=== PATIENT | male | born 2000 | race Caucasian/White ===

== ENCOUNTER 2023-10-03 18:56 | Emergency (ER) | payer OTHER, SELFPAY ==
[2023-10-03 18:58] VITALS: BP 126/90; PULSE 98; RESP 20; TEMP 36.4; O2SAT 100
[2023-10-03 19:33] VITALS: BP 141/72; PULSE 93; RESP 15; TEMP 36.6; O2SAT 96
[2023-10-03] MEDS: SODIUM CHLORIDE 0.9% IV 1,000 ML 999 ML IV CONT (19:34)
--- NOTE | 2023-10-03 19:34 | ECG_ITS ---
Test Date: 2023-10-03 19:39:52 Measurements Intervals [place] Rate: 89 P: -6 OK: 144 QRS: 46 QRSD: 98 T: 9 QT: 315 QTc: 383 Interpretive Statements SINUS RHYTHM No previous ECG available for comparison Electronically Signed On 10-04-2023 11:10:03 CDT by Santo Lockwood M.D.
[2023-10-03 19:46] LABS: Basophils Percent Auto 0.1 % (0.2-1.2); Eosinophils Percent Auto 0.3 % (0-4.4); Hematocrit 40.9 % (42.0-52.0); Hemoglobin 14.2 g/dL (14.0-18.0); Immature Granulocyte Absolute 0.02 K/mm3 (0.00-0.031); Immature Granulocyte Percent A 0.3 % (0-0.5); Lymphocytes Absolute Auto 1.07 K/mm3 (0.9-3.2); Lymphocytes Percent Auto 15.7 % (18.3-44.2); Mean Corpuscular HGB Conc 34.7 g/dl (32-36); Mean Corpuscular Hemoglobin 30.1 pg (26-34); Mean Corpuscular Volume 86.8 fl (80-100); Monocytes Absolute Auto 0.5 K/mm3 (0.1-0.6); Monocytes Percent Auto 7.3 % (2.6-8.5); Neutrophils Absolute Auto 5.2 K/mm3 (1.3-6.7); Neutrophils Percent Auto 76.3 % (45.5-73.1); Platelet Count Result 203 k/mm3 (150-375); Red Blood Count 4.71 M/mm3 (4.6-6.20); Red Cell Distribution Width 12.7 % (11.5-14.5); White Blood Count 6.8 K/mm3 (4.5-10.0)
[2023-10-03 19:48] LABS: Appearance Urine Clear (Clear); Bilirubin Urine Negative (Negative); Blood Urine Negative (Negative); Color Urine Yellow (Yellow); Glucose Urine UA Negative (Negative); Ketones Urine Negative (Negative); Leukocyte Esterase Ur Negative LEU/UL (Negative); Nitrate Urine Negative (Negative); Protein Urine Negative (Negative); Specific Grav Ur 1.019 (1.001-1.035); pH Urine 7.5 (5.0-9.0)
[2023-10-03 19:55] LABS: Alanine Aminotransferase 32 U/L (6-50); Albumin Level 4.6 g/dL (3.5-5.1); Alkaline Phosphatase 106 U/L (38-126); Anion Gap 9 mmol/L (4-12); Aspartate Amino Transferase 34 U/L (17-59); Blood Urea Nitrogen 9 mg/dL (9-20); Carbon Dioxide 23 mmol/L (22-30); Chloride 104 mmol/L (98-107); Creatine Kinase 136 U/L (55-170); Estimated CRCL calculation 127 ml/min; Estimated Glomerular Filt Rate > 60; Glucose 98 mg/dL (65-110); Magnesium 1.7 mg/dL (1.6-2.3); Potassium 3.8 mmol/L (3.4-5.0); Sodium 136 mmol/L (137-145)
[2023-10-03 19:56] LABS: Add Urine Microscopic? NO
[2023-10-03] MEDS: MAGNESIUM SULF 2 GM/WATER 50ML 2 GM/50 ML BAG IVPB (20:31)
[2023-10-03] MEDS: POTASSIUM CHLORIDE 20 MEQ PACKET (FOR LIQUID) 40 MEQ PO (20:32)
[2023-10-03] MEDS: KETOROLAC 15 MG/ML VIAL (*BKC) IV PUSH (21:38)
[2023-10-03 21:47] VITALS: BP 132/88; PULSE 92; RESP 18; O2SAT 95
--- NOTE | 2023-10-03 22:04 | ED.GENADULT ---
HPI - General Adult General Chief complaint: Unspecified Stated complaint: muscle cramping Time Seen by Provider: 10/03/23 19:31 History of Present Illness HPI narrative: Patient a 22-year-old gentleman who presents emergency department chief complaint of body aches muscle cramps. Patient states that on Friday he had a episode of numbness in his hand that lasted for a few minutes patient states that has subsequently resolved and had no weakness in his arm. The patient reports that that has not returned and reports that he has been outside working in the heat and feels generally run down. The patient reports no fever denies cough denies abdominal pain vomiting or diarrhea Related Data Allergies Allergy/AdvReac Type Severity Reaction Status Date / Time No Known Allergies Allergy Verified 10/03/23 19:00 Review of Systems Review of Systems: A 10 system review of systems was completed on the patient and is negative except for what is stated in the HPI. Nursing and ancillary documentation was reviewed. PMFSH Family History Family History Father Family history of blood dyscrasia Family history of elevated blood lipids Family history of cardiovascular disease Family history of lung cancer Mother Family history of mental disorder Family history of elevated blood lipids Family history of cardiac disorder Family history of malignant neoplasm of breast in first degree relative Grandparent Family history of mental disorder Family history of Parkinson's disease Family history of dementia Family history of malignant neoplasm of breast in first degree relative Social History Social History Smoking status: Never smoker Tobacco type: e-cigarettes/vaping Second hand tobacco smoke exposure: Yes Alcohol intake: never Substance use: never Substance use type: does not use Living arrangements: with family Occupation/Education: occupation Gender identity (if verbalized by the patient): Male Spiritual care concerns: No Agree to blood products: Yes Exam Narrative: GENERAL: Well-appearing, well-nourished, and in no acute distress. HEAD: Normocephalic, atraumatic. EYES: PERRLA and EOMI. ENT: Nares clear, no rhinorrhea or epistaxis. Mucous membranes moist. NECK: Supple. CHEST: Clear to auscultation. No respiratory distress. HEART: Regular rate and rhythm. No murmur heard. Normal peripheral pulses. ABDOMEN: Soft, nontender, nondistended, normal active bowel sounds. EXTREMITIES: Normal range of motion. No edema. SKIN: Warm, dry, no rash. NEURO: No focal deficits. Alert and oriented x3. GCS 15 good strength in all extremities no facial droop PSYCH: Normal mood and affect. Course Vital Signs Vital signs: Vital Signs Temperature 36.4 C 10/03/23 18:58 Pulse Rate 98 10/03/23 18:58 Respiratory Rate 20 10/03/23 18:58 Blood Pressure 126/90 10/03/23 18:58 Pulse Oximetry 100 10/03/23 18:58 Oxygen Delivery Room Air 10/03/23 18:58 Temperature 36.6 C 10/03/23 19:33 Pulse Rate 92 10/03/23 21:47 Respiratory Rate 18 10/03/23 21:47 Blood Pressure 132/88 10/03/23 21:47 Pulse Oximetry 95 10/03/23 21:47 Oxygen Delivery Room Air 10/03/23 18:58 Medical Decision Making MDM Narrative Medical decision making narrative: Differential diagnosis includes electrolyte abnormality, dehydration, heat exhaustion, infection, Laboratory studies were obtained on the patient showed a white count 6.8 hemoglobin is 14.2 electrolytes showed a potassium 3.8 and a magnesium of 1.7 urinalysis showed no evidence UTI Patient received 2 L of normal saline boluses received IV magnesium and p.o. potassium. Vital Signs Vital Signs: Vital Signs Temperature 36.4 C 10/03/23 18:58 Pulse Rate 98 10/03/23 18:58 Respiratory Rate 20 10/03/23 18:58 B
[2023-10-03 22:33] VITALS: BP 128/84; PULSE 81; RESP 17; O2SAT 100
== END 2023-10-03 22:35 | disposition home or self-care (01) ==
PROVIDERS: Emergency Provider Emergency Medicine; PCP Family Medicine
DX: M79.10 Myalgia, unspecified site (principal); E83.42 Hypomagnesemia
CPT/HCPCS: 36415; 80053; 81003; 82550; 83735; 85025; 93005; 96365; 96366; 96375; 99284; A9270; J1885; J3475; J7030